=== PATIENT | male | born 1970 | race Two or more races ===

== ENCOUNTER 2017-03-27 16:29 | Inpatient (IN) | payer MEDICAID ==
[~2017-03-27] VITALS: Ht 170.2 cm; Wt 52.9 kg
--- NOTE | 2017-03-27 16:46 | NUR ---
PT BIBA C/O SEIZURE EPISODE WHILE PT WAS IN HIS [employer]ULT DAY [employer]. PER MEDIC PT WAS SHAKING MORE THAN HIS NORMAL. PT HAS HX OF SEIZURE AND MR. PT IS NON VERBAL, MOANING. PLACED SEIZURE PADS AT [facility] FOR SAFETLY. AWAITING DR STORM.
--- NOTE | 2017-03-27 17:15 | NUR ---
AT [facility]
[2017-03-27 18:09] LABS: CALCIUM 9.3 mg/dL (8.5-10.1); CARBON DIOXIDE 27.2 mmol/L (21-32); CHLORIDE SERUM 106 mmol/L (98-107); CREATININE SERUM 0.5 mg/dL (0.7-1.3); GFR1 > 60 mL/min; GLUCOSE SERUM 101 mg/dL (74-106); POTASSIUM SERUM 3.6 mmol/L (3.5-5.1); SODIUM SERUM 141 mmol/L (136-145)
[2017-03-27 18:13] LABS: ALBUMIN 3.6 g/dL (3.4-5.0); ALKALINE PHOSPHATASE 50 U/L (46-116); ALT/SGPT 15 U/L (16-63); AST/SGOT 12 U/L (15-37); BILIRUBIN TOTAL 0.21 mg/dL (0.20-1.00); LIPASE 127 IU/L (73-393); TOTAL PROTEIN, SERUM 7.3 g/dL (6.4-8.2)
[2017-03-27 18:23] LABS: T3 TOTAL 1.2 ng/mL
[2017-03-27 18:25] LABS: FREE T4 0.7 ng/dL (0.76-1.46); FREE THYROXINE INDEX 1.5 ug/dL (1.4-4.5); T4(THYROXINE) 5.7 ug/dL (4.7-13.3)
[2017-03-27 18:34] LABS: BASOPHIL % 0.5 % (0-2); PLATELET COUNT 178 x10^3mcL (130-400); RED CELL DISTRIBUTION WIDTH 13.3 % (11.5-14.5)
[2017-03-27] MEDS ORDERED: MEGL PO (18:39)
[2017-03-27] MEDS ORDERED: THERA M PLUS T1 EACH PO (18:40)
[2017-03-27] MEDS ORDERED: TEGRETOL200 MG PO (18:40)
[2017-03-27] MEDS ORDERED: DEPAKOTE ER500 MG (18:41)
[2017-03-27] MEDS ORDERED: CLONAZEPAM2 MG PO (18:41)
[2017-03-27] MEDS ORDERED: KEPPRA500 MG PO (18:43)
--- NOTE | 2017-03-27 19:03 | NUR ---
ALL TEST RESULTS COMPLETE, PATIENT READY FOR MD RE-EVALUATION.
--- NOTE | 2017-03-27 19:12 | NUR ---
REPORT GIVEN TO SAIMA
--- NOTE | 2017-03-27 19:24 | NUR ---
PATIENT SEEN IN BED , NO APPROPIATE VERBAL RESPONSED , PATIENT CALLING OUT 'RYAN SWENSON HI' PATIENT MEDICATED WITH ATIVAN IVP PER ORDER.
--- NOTE | 2017-03-27 20:25 | NUR ---
REPORT WAS GIVEN TO CRISTINO. MRSA SWAB WA DONE PATIENT TRANSPORTED TO ROOM 255B
[2017-03-27 20:41] LABS: CHOLESTEROL/HDL RATIO 6.7; MAGNESIUM 2.1 mg/dL (1.8-2.4); PHOSPHOROUS 3.1 mg/dL (2.5-4.9)
[2017-03-27 20:54] VITALS: BP 137/101
[2017-03-27 20:59] VITALS: BP 137/101
--- NOTE | 2017-03-27 20:59 | NUR ---
RECEIVED PT FROM ED VIA SHAR. ORIENTED PT AND SURGICAL ATTENDANT TO ROOM AND SURROUNDINGS. PT IS MR AND NON-VERBAL. UNABLE TO FOLOW COMMANDS. UNALBE TO ASSESS ORIENATION. TELE 18 PLACED ON PT READING NSR. CALL LIGHT WITHIN REACH. BED IN LOWEST POSITION. SIDE RAILS UPX 2. SEIZURE PRECAUTIONS IN PLACE.
--- NOTE | 2017-03-27 22:32 | NUR ---
CARBAMAZEPINE RESULT 13.7 DOCTOR MADE AWARE.
--- NOTE | 2017-03-28 03:39 | NUR ---
LAYING IN BED WITH NO ACUTE DISTRESS. BREATHING EVEN AND UNLABORED. WILL CONT TO MONITOR.
--- NOTE | 2017-03-28 05:13 | NUR ---
SLEPT PERIODICALLY THROUGHOUT SHIFT. ALL NEEDS MET AND ATTENDED TO. SEIZURE PRECAUTION ENFORCED. WILL CONT TO MONITOR AND ENDORSE ALL CARE TO ONCOMING NURSE.
[2017-03-28 05:20] VITALS: BP 108/63
[2017-03-28 05:49] LABS: BASOPHIL % 0.4 % (0-2); PLATELET COUNT 185 x10^3mcL (130-400); RED CELL DISTRIBUTION WIDTH 13.6 % (11.5-14.5)
[2017-03-28 06:17] LABS: CALCIUM 8.8 mg/dL (8.5-10.1); CARBON DIOXIDE 28.9 mmol/L (21-32); CHLORIDE SERUM 107 mmol/L (98-107); CREATININE SERUM 0.5 mg/dL (0.7-1.3); GFR1 > 60 mL/min; GLUCOSE SERUM 91 mg/dL (74-106); MAGNESIUM 2.3 mg/dL (1.8-2.4); PHOSPHOROUS 3.6 mg/dL (2.5-4.9); POTASSIUM SERUM 3.7 mmol/L (3.5-5.1); SODIUM SERUM 144 mmol/L (136-145)
--- NOTE | 2017-03-28 07:05 | NUR ---
RESTING IN BED, CALM AND COOPERATIVE, NONVERBAL, NO GRIMMACING OR MOANING, UNDER NO APPARENT DISTRESS, SEIZURE PRECAUTIONS IN PLACE, ON TELE #18 NSR ON MONITOR, LUNGS CTA, ACTIVE BOWEL SOUNDS X4 QUADS, IV AT R/HAND INFUSING NS AT 50ML/HR, CALL LIGHT WITHIN REACH, BEDALARM ON, CALL LIGHT WITHIN REACH, WILL CONTINUE TO PROVIDE CARE.
[2017-03-28 09:09] VITALS: BP 117/68
--- NOTE | 2017-03-28 13:21 | NUR ---
AUNT AT BEDSIDE ASSISTING WITH MEAL, PT ABLE EAT 100% OF MEAL, NO GI DISTRESS NOTED, WILL CONTINUE TO PROVIDE CARE.
[2017-03-28 13:43] VITALS: BP 125/58
[2017-03-28 14:54] LABS: microscopic required? NO
--- NOTE | 2017-03-28 14:54 | NUR ---
URINE SAMPLE COLLECTED VIA STRAIGHT CATH, PT TOLERATED WITHOUT DISTRESS, SAMPLE SENT TO LAB.
[2017-03-28 15:19] LABS: urine erythrocyte NEGATIVE (NEGATIVE)
[2017-03-28 16:23] VITALS: BP 125/58
--- NOTE | 2017-03-28 16:36 | NUR ---
IV D/C'D, CATH TIP INTACT, NO BLEEDING OR PHLEBITIS NOTED, COVERED WITH BANDAID, PATIENT WAS RESTLESS, AUNT ASSISTED AND PT WAS ABLE TO REST WITHOUT DISTRESS.
--- NOTE | 2017-03-28 17:01 | NUR ---
PATIENT DISCHARGE TO [facility] AND TERI BLANCO-CAREGIVER PROVIDING TRANSPORTATION VIA VAN WITH ONE ATTENDANT, REVIEWED DISCHARGE INSTRUCTIONS WITH B[employer]OP TECHNICIAN AND FAM, INCLUDING SCHEDULING A F/U APPOINTMENT WITH PCP, B[employer] SHOP TECHNICIAN AND FAM VERBALIZED UNDERSTANDING OF DISCHARGE INSTRUCTIONS. PT ASSISTED DOWNSTAIRS VIA WHEELCHAIR BY HOSPITAL LABORATORY TECHNICIAN, CAREGIVER AND FAM.
--- NOTE | 2017-03-29 12:21 | NUR ---
ECHO NOT DONE, PT.DISCHARGED
== END 2017-03-28 17:00 | DRG 53 ==
LOC: ED 16:29 → DU 19:29
PROVIDERS: Specialist; ADMIT Family Medicine
DX: G40.909 Epilepsy, unspecified, not intractable, without status epilepticus (principal); N17.0 Acute kidney failure with tubular necrosis; P91.0 Neonatal cerebral ischemia; I16.0 Hypertensive urgency; Z68.1 Body mass index [BMI] 19.9 or less, adult; E78.5 Hyperlipidemia, unspecified; K59.09 Other constipation; E02 Subclinical iodine-deficiency hypothyroidism; Z99.3 Dependence on wheelchair; R62.50 Unspecified lack of expected normal physiological development in childhood
CPT/HCPCS: 83880; 84439; J2060; J7030; Q0092

== ENCOUNTER 2017-07-09 17:41 | Emergency (ER) | payer MEDICAID ==
[~2017-07-09 17:41] MED LIST: CLONAZEPAM2 MG PO; DEPAKOTE ER500 MG; KEPPRA500 MG PO; MEGL PO; TEGRETOL200 MG PO; THERA M PLUS T1 EACH PO
[2017-07-09 18:48] LABS: BASOPHIL % 0.6 % (0-2); PLATELET COUNT 213 x10^3mcL (130-400); RED CELL DISTRIBUTION WIDTH 13.4 % (11.5-14.5)
[2017-07-09 18:59] LABS: CALCIUM 9.6 mg/dL (8.5-10.1); CARBON DIOXIDE 33.3 mmol/L (21-32); CHLORIDE SERUM 107 mmol/L (98-107); CREATININE SERUM 0.7 mg/dL (0.7-1.3); GFR1 > 60 mL/min; GLUCOSE SERUM 99 mg/dL (74-106); POTASSIUM SERUM 4.3 mmol/L (3.5-5.1); SODIUM SERUM 146 mmol/L (136-145)
[2017-07-09 19:13] LABS: ALBUMIN 3.5 g/dL (3.4-5.0); ALKALINE PHOSPHATASE 55 U/L (46-116); ALT/SGPT 17 U/L (16-63); AST/SGOT 12 U/L (15-37); TOTAL PROTEIN, SERUM 7.7 g/dL (6.4-8.2)
[2017-07-09 20:34] VITALS: BP 114/64
== END 2017-07-09 20:20 | disposition home or self-care (01) ==
LOC: ED 17:41
PROVIDERS: Emergency Medicine
DX: G40.909 Epilepsy, unspecified, not intractable, without status epilepticus (principal); Z79.899 Other long term (current) drug therapy
CPT/HCPCS: 36415

== ENCOUNTER 2017-07-25 16:18 | Emergency (ER) | payer MEDICAID ==
[~2017-07-25] VITALS: Ht 167.6 cm; Wt 63.5 kg
[2017-07-25 17:23] LABS: CALCIUM 9.1 mg/dL (8.5-10.1); CARBON DIOXIDE 26.3 mmol/L (21-32); CHLORIDE SERUM 105 mmol/L (98-107); CREATININE SERUM 0.5 mg/dL (0.7-1.3); GFR1 > 60 mL/min; GLUCOSE SERUM 116 mg/dL (74-106); SODIUM SERUM 139 mmol/L (136-145)
[2017-07-25 19:09] VITALS: BP 108/86
== END 2017-07-25 19:20 | disposition home or self-care (01) ==
LOC: ED 16:18
PROVIDERS: Emergency Medicine
DX: G40.909 Epilepsy, unspecified, not intractable, without status epilepticus (principal); F79 Unspecified intellectual disabilities; G80.9 Cerebral palsy, unspecified; Z79.899 Other long term (current) drug therapy
CPT/HCPCS: J1953; J2060; J3490